=== PATIENT | male | born 1960 | race African-American/Black ===

== ENCOUNTER 2017-12-17 10:03 | Emergency (ER) | payer BC ==
[2017-12-17 10:04] VITALS: BP 132/72; PULSE 70; RESP 20; TEMP 97.3; O2SAT 98
--- NOTE | 2017-12-17 10:32 | PD ---
HPI Chief Complaint: Respiratory Symptoms Time Seen by Provider: 10:31 Travel History International Travel<30 days: No Contact w/Intl Traveler<30days: No Traveled to known affect area: No History of Present Illness HPI 57-year-old -[place] male presents emergency department with 3 week history of increasing cough and chest congestion. Patient states his cough is worsening to the point where he has difficulty sleeping at night. Patient is a long-term smoker, but denies significant illness other than recent cold which has now settled in his chest. He is concerned that his sputum has noted to have some blood in it in the last 24-48 hours. Patient has needed an inhaler in the past. Patient diagnosed with bronchitis many years ago. No history of pneumonia. Patient has no known drug allergies. [facility] Social History Alcohol Use: Yes Tobacco Use: Yes Substance Use: No Allergies-Medications (Allergen,Severity, Reaction): Coded Allergies: No Known Allergies (Unverified , 12/17/17) Review of Systems Except as stated in HPI: all other systems reviewed are Neg General / Constitutional: No: Fever, Chills Eyes: No: Visual changes HENT: No: Headaches, Vertigo, Lightheadedness, Sore Throat, Rhinitis, Rhinorrhea, Congestion, Nosebleed, Neck Stiffness, Neck Pain, Dental Difficulties, Earache Cardiovascular: No: Chest Pain or Discomfort Respiratory: Positive: Cough, Shortness of Breath, Wheezing, Hemoptysis, No: Sneezing, Orthopnea, Stridor, Night Sweats, Pleuritic Pain, Other Gastrointestinal: No: Nausea, Vomiting, Diarrhea, Abdominal Pain Genitourinary: No: Dysuria Musculoskeletal: No: Pain Skin: No Rash Neurologic: No: Weakness Psychiatric: No: Depression Endocrine: No: Polydipsia Hematologic/Lymphatic: No: Easy Bruising Physical Exam Narrative GENERAL: Patient appears ill but not septic SKIN: Warm and dry. Normal color. Normal turgor. No rash. HEAD: Atraumatic. Normocephalic. EYES: Pupils equal and round. No scleral icterus. No injection or drainage. ENT: No nasal bleeding or discharge. Mucous membranes pink and moist. TMs are clear bilaterally. Pharynx is clear. No sinus tenderness to palpation. NECK: Trachea midline. Supple and nontender. CARDIOVASCULAR: Regular rate and rhythm. RESPIRATORY: No accessory muscle use. Breath sounds are distant, with generalized wheezing to auscultation. Breath sounds equal bilaterally. GASTROINTESTINAL: Abdomen soft, non-tender, nondistended. Hepatic and splenic margins not palpable. MUSCULOSKELETAL: Extremities without clubbing, cyanosis, or edema. No obvious deformities. NEUROLOGICAL: Awake and alert. No obvious cranial nerve deficits. Motor grossly within normal limits. Five out of 5 muscle strength in the arms and legs. Normal speech. PSYCHIATRIC: Appropriate mood and affect; insight and judgment normal. Data Data Last Documented VS Vital Signs Date Time Temp Pulse Resp B/P (MAP) Pulse Ox O2 Delivery O2 Flow Rate FiO2 12/17/17 11:34 16 99 Room Air 12/17/17 11:32 75 12/17/17 10:04 97.3 Orders Orders Complete Blood Count With Diff (12/17/17 10:40) Comprehensive Metabolic Panel (12/17/17 10:40) Iv Access Insert/Monitor (12/17/17 10:40) Ecg Monitoring (12/17/17 10:40) Oximetry (12/17/17 10:40) Oxygen Administration (12/17/17 10:40) Chest, Pa & Lat (12/17/17 10:40) Sodium Chloride 0.9% Flush (Ns Flush) (12/17/17 10:45) Methylprednisolone So Succ Inj (Solumedr (12/17/17 10:45) Albuterol-Ipratropium Neb (Duoneb Neb) (12/17/17 10:45) Labs Laboratory Tests Test 12/17/17 11:15 [facility] Medical Decision Making Medical Screen Exam Complete: Yes Emergency Medical Condition: Yes Differential Diagnosis COPD with acute exacerbation. Wheezing. Bronchitis. Pneumonia. Cancer Narrative Course Patient is medically stable at time of exam. Labs ordered including CBC, CMP. IV access is obtained and the patient is given 125 mg Solu-Medrol IV. Patient is given DuoNeb 3. Chest x-ray is ordered and shows no acute process per radiologist. Patient is given Rocephin 1 g IV as well as azithromycin 500 mg p.o. Patient will be treated for bronchitis. Patient continued on azithromycin Z-Roberto as prescribed. Patient continued on prednisone 20 mg twice daily 7 days. Patient given albuterol metered-dose inhaler 2 puffs every 4-6 hours as needed wheeze. Patient is encouraged to quit smoking immediately. Patient to follow-up with local primary care physician or return to the emergency department as needed. Diagnosis Primary Impression: Chronic wheezy bronchitis Referrals: [facility] Patient Instructions: Acute Bronchitis (ED), General Instructions, How to Stop Smoking (DC) Additional Instructions: Chest x-ray is ordered and shows no acute process per radiologist. Patient is given Rocephin 1 g IV as well as azithromycin 500 mg p.o. Patient will be treated for bronchitis. Patient continued on azithromycin Z-Roberto as prescribed. Patient continued on prednisone 20 mg twice daily 7 days. Patient given albuterol metered-dose inhaler 2 puffs every 4-6 hours as needed wheeze. Patient is encouraged to quit smoking immediately. Patient to follow-up with local primary care physician or return to the emergency department as needed. Med/Other Pt SpecificInfo: Prescription(s) given Disposition: 01 DISCHARGE HOME Condition: Stable Fernando Ross Dec 17, 2017 10:32
[2017-12-17] MEDS ORDERED: methylPREDNISolone SOD SUCC 125 MG/2 ML VIAL IV PUSH ONE (10:45)
[2017-12-17] MEDS ORDERED: SODIUM CHLORIDE 0.9% FLUSH 10 ML FLUSH IVF PRN (10:45)
[2017-12-17] MEDS: RESP: ALBUTEROL 2.5 MG/IPRATROPIUM 0.5 MG NEB (SCH) INH (11:00)
--- NOTE | 2017-12-17 11:16 | RADRPT ---
EXAM DATE/TIME: 12/17/2017 10:53 [facility] COMPARISON: No previous studies available for comparison. INDICATIONS : Cough and shortness of breath. MEDICAL HISTORY : None. SURGICAL HISTORY : None. ENCOUNTER: Initial ACUITY: 1 week PAIN SCORE: 0/10 LOCATION: Bilateral chest FINDINGS: PA and lateral views of the chest demonstrate the lungs to be symmetrically aerated without evidence of mass, infiltrate or effusion. The cardiomediastinal contours are unremarkable. Osseous structure s are intact. CONCLUSION: No acute disease. Shailesh Linda Jr., MD on December 17, 2017 at 11:07 Board Certified Radiologist. This report was verified electronically.
[2017-12-17 11:32] VITALS: PULSE 75; RESP 16; O2SAT 99
[2017-12-17 11:50] LABS: AUTOMATED NEUTROPHIL # 2.4 TH/MM3 (1.8-7.7); BASOPHIL # 0.1 TH/MM3 (0-0.2); BASOPHIL % 1.4 % (0.0-2.0); EOSINOPHIL # 0.5 TH/MM3 (0-0.4); EOSINOPHIL % 6.3 % (0.0-4.0); HEMATOCRIT 41.4 % (39.0-51.0); HEMOGLOBIN 13.9 GM/DL (13.0-17.0); LYMPH % 46.6 % (9.0-44.0); LYMPHOCYTE # 3.5 TH/MM3 (1.0-4.8); MEAN CELL VOLUME 87.6 FL (80.0-100.0); MEAN CORPUSCULAR HEMOGLOBIN 29.4 PG (27.0-34.0); MEAN CORPUSCULAR HGB CONC 33.6 % (32.0-36.0); MONO % 12.9 % (0.0-8.0); NEUT % 32.8 % (16.0-70.0); PLATELET COUNT 100 TH/MM3 (150-450); RED BLOOD COUNT 4.72 MIL/MM3 (4.50-5.90); RED CELL DISTRIBUTION WIDTH 17.7 % (11.6-17.2); WHITE BLOOD COUNT 7.4 TH/MM3 (4.0-11.0)
--- NOTE | 2017-12-17 11:53 | PD ---
Physical Exam Date Seen by Provider: Dec 17, 2017 Narrative This patient presents with respiratory complaints. Data Data Last Documented VS Vital Signs Date Time Temp Pulse Resp B/P (MAP) Pulse Ox O2 Delivery O2 Flow Rate FiO2 12/17/17 11:34 16 99 Room Air 12/17/17 11:32 75 12/17/17 10:04 97.3 Orders Orders Complete Blood Count With Diff (12/17/17 10:40) Comprehensive Metabolic Panel (12/17/17 10:40) Iv Access Insert/Monitor (12/17/17 10:40) Ecg Monitoring (12/17/17 10:40) Oximetry (12/17/17 10:40) Oxygen Administration (12/17/17 10:40) Chest, Pa & Lat (12/17/17 10:40) Sodium Chloride 0.9% Flush (Ns Flush) (12/17/17 10:45) Methylprednisolone So Succ Inj (Solumedr (12/17/17 10:45) Albuterol-Ipratropium Neb (Duoneb Neb) (12/17/17 10:45) Ceftriaxone Inj (Rocephin Inj) (12/17/17 12:00) Azithromycin (Zithromax) (12/17/17 12:00) Labs Laboratory Tests Test 12/17/17 11:15 White Blood Count 7.4 TH/MM3 Red Blood Count 4.72 MIL/MM3 Hemoglobin 13.9 GM/DL Hematocrit 41.4 % Mean Corpuscular Volume 87.6 FL Mean Corpuscular Hemoglobin 29.4 PG Mean Corpuscular Hemoglobin Concent 33.6 % Red Cell Distribution Width 17.7 % Platelet Count 100 TH/MM3 Mean Platelet Volume 10.0 FL Neutrophils (%) (Auto) 32.8 % Lymphocytes (%) (Auto) 46.6 % Monocytes (%) (Auto) 12.9 % Eosinophils (%) (Auto) 6.3 % Basophils (%) (Auto) 1.4 % Neutrophils # (Auto) 2.4 TH/MM3 Lymphocytes # (Auto) 3.5 TH/MM3 Monocytes # (Auto) 1.0 TH/MM3 Eosinophils # (Auto) 0.5 TH/MM3 Basophils # (Auto) 0.1 TH/MM3 CBC Comment DIFF FINAL Differential Comment MDM Supervised Visit with ANNEL: Yes Narrative Course I, Dr. Nunez, have reviewed the advance practice practitioner's documentation and am in agreement, met with the patient face to face, made the diagnosis, and the medical decision making was done by me. *My assessment and Findings: The patient was receiving a breathing treatment when I went in to see him. He was able to speak to me in complete sentences. His lungs are currently clear. Please see Catarino Ross PA-C's note for results of laboratory and radiographic evaluation, ED course, final diagnosis and disposition Dunia Nunez MD Dec 17, 2017 11:53
[2017-12-17] MEDS ORDERED: AZIT250T3 PO (11:58)
[2017-12-17] MEDS ORDERED: VENTAER INH (11:58)
[2017-12-17] MEDS ORDERED: PRED20 PO (11:58)
[2017-12-17] MEDS ORDERED: AZITHROMYCIN 250 MG TAB PO ONE (12:00)
[2017-12-17] MEDS ORDERED: cefTRIAXone INJ 1,000 MG in SODIUM CHLORIDE 0.9% INJ 100 ML IV ONE (12:00)
[2017-12-17 12:08] LABS: ALT (GPT) 64 U/L (12-78)
[2017-12-17 12:11] LABS: ALKALINE PHOSPHATASE 120 U/L (45-117); AST (GOT) 99 U/L (15-37); BICARBONATE 27.1 MEQ/L (21.0-32.0); BLOOD UREA NITROGEN 13 MG/DL (7-18); CALCIUM 8.5 MG/DL (8.5-10.1); CHLORIDE 109 MEQ/L (98-107); CREATININE 0.84 MG/DL (0.60-1.30); GLOMERULAR FILTRATION RATE 113 ML/MIN (>89); GLUCOSE,RANDOM 79 MG/DL (74-106); SODIUM (NA) 142 MEQ/L (136-145); TOTAL BILIRUBIN ADULT 0.7 MG/DL (0.2-1.0); TOTAL PROTEIN 7.7 GM/DL (6.4-8.2)
== END 2017-12-17 13:21 | disposition home or self-care (01) ==
LOC: NEPD 10:03
DX: J40 Bronchitis, not specified as acute or chronic (principal); R06.2 Wheezing; Z72.0 Tobacco use
CPT/HCPCS: 71046; 80053; 85025; 94640; 94664; 96374; 96375; 99284; J0696; J2930

== ENCOUNTER 2018-01-30 12:44 | Emergency (ER) | payer BC ==
[~2018-01-30] VITALS: Ht 177.8 cm; Wt 85.0 kg
[~2018-01-30 12:44] MED LIST: AZIT250T3 PO; PRED20 PO; VENTAER INH
[2018-01-30 12:51] VITALS: BP 122/64; PULSE 89; RESP 20; TEMP 98.6; O2SAT 96
[2018-01-30] MEDS ORDERED: predniSONE 20 MG TAB PO ONE (13:45)
[2018-01-30] MEDS: RESP: ALBUTEROL 2.5 MG/IPRATROPIUM 0.5 MG NEB (SCH) INH ×2 (13:53→13:55)
--- NOTE | 2018-01-30 13:54 | RADRPT ---
EXAM DATE/TIME: 01/30/2018 13:33 [facility] COMPARISON: CHEST PA & LAT, December 17, 2017, 10:53. INDICATIONS : Cough for 2 months. MEDICAL HISTORY : None. SURGICAL HISTORY : None. ENCOUNTER: Initial ACUITY: 2 months PAIN SCORE: 10/10 LOCATION: Bilateral chest FINDINGS: PA and lateral views of the chest demonstrate the lungs to be symmetrically aerated without evidence of mass, infiltrate or effusion. The cardiomediastinal contours are unremarkable. Osseous structure s are intact. CONCLUSION: No acute disease. No significant change has occurred. Anders Alex MD on January 30, 2018 at 13:52 Board Certified Radiologist. This report was verified electronically.
--- NOTE | 2018-01-30 14:05 | PD ---
HPI Chief Complaint: Cold / Flu Symptoms Time Seen by Provider: 13:16 Travel History International Travel<30 days: No Contact w/Intl Traveler<30days: No Traveled to known affect area: No History of Present Illness HPI 57-year-old male presents to the emergency department with complaint of nasal congestion, worsening of productive cough, body aches, subjective fever 2 days. Says he has had a productive cough for greater than 2 months and has been evaluated here for 3 times. Reports worsening of his symptoms in the last 2 days with onset of his current symptoms. Denies chest pain. Reports shortness of breath which has been ongoing for over the past 2 months also. He denies change in shortness of breath. Reports wheezing. Denies ear pain, sore throat. Reports smoking cigars for over 20 years. Has tried taking Lortab and [id number] cough and cold medications for his symptoms. Symptoms are mild in severity. Primary care provider is at [facility] and he has an appointment on February 07. No known allergies. Denies significant past medical history, but says he would not be amazed that he has COPD. Has no other medical complaints. No other modifying factors or associated signs and symptoms. [facility] Social History Alcohol Use: Yes Tobacco Use: Yes Substance Use: No Allergies-Medications (Allergen,Severity, Reaction): Coded Allergies: No Known Allergies (Unverified , 01/30/18) Reported Meds & Prescriptions Reported Meds & Active Scripts Active Doxycycline Hyclate 100 Mg Cap 100 Mg PO BID 10 Days Tessalon Perles (Benzonatate) 100 Mg Cap 100 Mg PO TID PRN 3 Days Deltasone (Prednisone) 20 Mg Tab 40 Mg PO DAILY 4 Days start 01/31/2018 Ventolin Hfa 18 GM Inh (Albuterol Sulfate) 90 Mcg/Act Aer 2 Puff INH Q4-6H PRN Prednisone 20 Mg Tab 20 Mg PO BID 7 Days Azithromycin 250 Mg Tab 250 Mg PO DIRECTED Take 2 tabs (500 mg) on day 1 then 1 tab daily x 4 days. Review of Systems Except as stated in HPI: all other systems reviewed are Neg Physical Exam Narrative GENERAL: Well-nourished, well-developed black male patient, in no acute distress ; afebrile, nontoxic-appearing SKIN: Warm and dry. HEAD: Atraumatic. Normocephalic. EYES: Pupils equal and round. No scleral icterus. No injection or drainage. ENT: Mucosa pink and moist. No erythema or exudates. No uvular edema. No uvular , palatal, or tonsillar deviation. Airway patent. Nares without nasal blood, purulent drainage or septal hematoma. EARS: Bilateral pinnae and external canals appear within normal limits. Bilateral tympanic membranes without erythema, dullness or perforation. NECK: Trachea midline. No lymphadenopathy. CARDIOVASCULAR: Regular rate and rhythm. No murmur appreciated. RESPIRATORY: No accessory muscle use. Lungs clear throughout with decreased lung sounds in bilateral bases to auscultation. Breath sounds equal bilaterally. No retractions or tachypnea. No Audible wheezing noted. GASTROINTESTINAL: Flat. MUSCULOSKELETAL: No obvious deformities. No clubbing. No cyanosis. No edema. NEUROLOGICAL: Awake and alert. Oriented 3. No obvious cranial nerve deficits. Motor grossly within normal limits. Normal speech. Moves all extremities. 5/5 strength to all extremities. PSYCHIATRIC: Appropriate mood and affect; insight and judgment normal. Data Data Last Documented VS Vital Signs Date Time Temp Pulse Resp B/P (MAP) Pulse Ox O2 Delivery O2 Flow Rate FiO2 01/30/18 12:51 98.6 89 20 122/64 (83) 96 Orders Orders Chest, Pa & Lat (01/30/18 13:16) Prednisone (Deltasone) (01/30/18 13:45) Albuterol-Ipratropium Neb (Duoneb Neb) (01/30/18 13:45) Influenzae A/B Antigen (01/30/18 13:45) MDM Medical Decision Making Medical Screen Exam Complete: Yes Emergency Medical Condition: Yes Medical Record Reviewed: Yes Differential Diagnosis Chronic bronchitis, COPD, pneumonia, viral illness, upper respiratory infection , influenza Narrative Course 57-year-old male with cold/flu symptoms 2 days. He was seen here at the beginning of December and diagnosed with chronic wheezy bronchitis. He reports continued productive cough and shortness of breath for greater than 2 months, which his cough has become worse but his shortness of breath has not. Denies chest pain or tightness. He is in no acute distress. Oxygen saturation is 96% on room air. DuoNeb 2, Deltasone, chest x-ray ordered. 1407:Chest x-ray concludes: Chest X-Ray 01/30/18 1316 Signed Impressions: Service Date/Time: January 13:33 - CONCLUSION: No acute disease. No significant change has occurred. Anders Alex MD Discussed x-ray findings with the patient. 1515: Influenza negative. On reexamination the patient states that he can breathe much better. He denies chest tightness or shortness of breath. Lungs are clear and equal throughout with improved lung sounds in bilateral bases. Ventolin inhaler, Deltasone, Tessalon Perles, doxycycline prescribed for home. Instructed patient to follow up with primary care provider. Patient verbalizes understanding and agreement with treatment plan. Patient is medically cleared and stable for discharge. Discussed reasons to return to the emergency department. Patient agrees with treatment plan. The patients vital signs are stable and the patient is stable for outpatient follow-up and treatment. Patient discharged home, stable and in no acute distress. Diagnosis Primary Impression: Bronchitis Referrals: 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 Instructions: Acute Bronchitis (ED), Chronic Bronchitis (ED), General Instructions Departure Forms: Tests/Procedures, Work Release Enter return to work date: Feb 01, 2018 Additional Instructions: Use Albuterol inhaler as prescribed Take oral steroids as prescribed and complete full course Use Tessalon Perles as prescribed to decrease coughing spasms [id number] decongestants or antihistamines as directed and as needed for symptom management Your cough can last 4-6 weeks Drink plenty of fluids to prevent dehydration Use hot air humidifier to decrease cough exacerbation Turn off ceiling fans and sleep with head of bed elevated Avoid triggers such as second hand smoke, dust, known allergens Follow-up with your primary care provider Return to the emergency department immediately with worsening of symptoms Med/Other Pt SpecificInfo: Prescription(s) given Scripts Doxycycline Hyclate (Doxycycline Hyclate) 100 Mg Cap 100 MG PO BID for Infection for 10 Days, #20 CAP 0 Refills Prov: Celia Gregory [employer] LANG[employer]AGE INTERPRETER 01/30/18 Benzonatate (Tessalon Perles) 100 Mg Cap 100 MG PO TID Y for COUGH for 3 Days, CAP 0 Refills Prov: Celia Gregory HOU[employer] S[employer] LANGUAGE INTERPRETER 01/30/18 Prednisone (Deltasone) 20 Mg Tab 40 MG PO DAILY for 4 Days, #8 TAB 0 Refills start 01/31/2018 Prov: Celia Gregory 01/30/18 Albuterol 18 GM Inh (Ventolin Hfa 18 GM Inh) 90 Mcg/Act Aer 2 PUFF INH Q4-6H Y for SHORTNESS OF BREATH, #1 INHALER 0 Refills Prov: Celia Gregory 01/30/18 Disposition: 01 DISCHARGE HOME Condition: Stable Celia Gregory Jan 30, 2018 14:05
[2018-01-30] MEDS ORDERED: BENZ100 PO (14:10)
[2018-01-30] MEDS ORDERED: VENTAER INH (14:10)
[2018-01-30] MEDS ORDERED: PRED-503 PO (14:10)
[2018-01-30] MEDS ORDERED: DOXY100C PO (14:10)
== END 2018-01-30 15:28 | disposition home or self-care (01) ==
LOC: NEPK 12:44
DX: J40 Bronchitis, not specified as acute or chronic (principal); Z72.0 Tobacco use; Z79.51 Long term (current) use of inhaled steroids; Z79.899 Other long term (current) drug therapy
CPT/HCPCS: 71046; 87804; 94640; 94664; 99284; J7512